=== PATIENT | male | born 1965 | race African-American/Black ===

== ENCOUNTER 2016-10-15 04:42 | Emergency (ER) | payer SELFPAY ==
[~2016-10-15] VITALS: Ht 170.2 cm
[2016-10-15 05:14] VITALS: BP 191/119
[2016-10-15 05:14] LABS: BILIRUBIN,URINE NEGATIVE (NEG); GLUCOSE,URINE NEGATIVE (NEG); NITRITE,URINE NEGATIVE (NEG); PROTEIN,URINE 30 mg/dL (NEG-TRACE); UROBILINOGEN,URINE 0.2 mg/dL (0.2 mg/dL)
--- NOTE | 2016-10-15 05:15 | PHYS DOC ---
Past Medical History Past Medical History: Hypertension Past Surgical History: No Surgical History Additional Past Surgical Histo: Fx L)jaw with repair(hit with batted baseball.) Alcohol Use: None Drug Use: Marijuana Adult General Chief Complaint Chief Complaint: PENIS PROBLEM HPI HPI Patient is a 51 year old male who presents with penile discharge. Patient reports 2 day history of white discharge associated with mild burning pain while urinating. He denies fevers/chills, nausea, vomiting, abdominal pain, testicular pain. Reports he is sexually active with one partner. Previously treated for a sexual infection many years ago. Review of Systems Review of Systems Constitutional: Denies fever or chills HENT: Denies nasal congestion or sore throat Respiratory: Denies cough Cardiovascular: Denies chest pain GI: Denies abdominal pain, nausea, vomiting : Denies dysuria or hematuria, reports penile discharge Musculoskeletal: Denies back pain or joint pain Integument: Denies rash or skin lesions Neurologic: Denies headache Current Medications Current Medications Current Medications Medications (Trade) Dose Ordered Sig/Gita Start Time Stop Time Status Last Admin Dose Admin Azithromycin (Zithromax) 1,000 mg 1X ONCE 10/15/16 05:30 10/15/16 05:31 DC 10/15/16 05:25 1,000 MG Ceftriaxone Sodium (Rocephin Im) 250 mg 1X ONCE 10/15/16 05:30 10/15/16 05:31 DC 10/15/16 05:25 250 MG Allergies Allergies Allergies Coded Allergies Type Severity Reaction Last Updated Verified No Known Drug Allergies 05/07/15 No Physical Exam Physical Exam Constitutional: Well developed, well nourished, no acute distress, non-toxic appearance. HENT: Normocephalic, atraumatic, bilateral external ears normal, oropharynx moist, nose normal. Eyes: PERRLA, EOMI, conjunctiva normal, no discharge. Neck: supple, no stridor. Cardiovascular: RRR, no murmurs, no edema. Lungs & Thorax: LCTAB, no wheezing, no respiratory distress. Abdomen: soft, nontender, nondistended. : normal appearing male external genitalia with circumcised penis, no evidence of discharge, no rashes or lesions, no penile tenderness, no testicular tenderness or masses. Skin: Warm, dry, no erythema, no rash. Back: No tenderness. Extremities: No tenderness, no edema. Neurologic: Alert and oriented X 3, no focal deficits noted. Psychologic: Affect normal, judgement normal, mood normal. Current Patient Data Vital Signs Vital Signs Date Time Temp Pulse Resp B/P Pulse Ox O2 Delivery O2 Flow Rate FiO2 10/15/16 05:14 98.1 70 16 93 Room Air 98.1 Lab Values Laboratory Tests Test 10/15/16 05:01 Urine Collection Type Unknown Urine Color Yellow Urine Clarity Clear Urine pH 6.0 Urine Specific [place] >=1.030 Urine Protein 30mg/dL (NEG-TRACE) Urine Glucose (UA) Negativemg/dL (NEG) Urine Ketones (Stick) Negativemg/dL (NEG) Urine Blood Negative (NEG) Urine Nitrite Negative (NEG) Urine Bilirubin Negative (NEG) Urine Urobilinogen Dipstick 0.2mg/dL (0.2 mg/dL) Urine Leukocyte Esterase Small (NEG) Urine RBC 0/HPF (0-2) Urine WBC 20-40/HPF (0-4) Urine Squamous Epithelial Cells Occ/LPF Urine Bacteria 0/HPF (0-FEW) Urine Hyaline Casts Occasional/HPF Urine Mucus Marked/LPF Urine Chlamydia DNA (PCR) Negative (Negative) Neisseria gonorrhoeae DNA (PCR) Negative (Negative) Microbiology 10/15/16 Urine Culture - Final, Complete 10/15/16 Urine Culture Result 1 (LAZARO) - Final, Complete EKG EKG [] Radiology/Procedures Radiology/Procedures [] Course & Med Decision Making Course & Med Decision Making Pertinent Labs and Imaging studies reviewed. (See chart for details) Patient presents with possible sexually transmitted infection. he would like to be empirically treated. Gave rocephin & azithromycin here. Counseled regarding safe sex & need for sexual partner(s) to be tested/treated. Follow up as needed with Dr. Abad in urology clinic. Come back for high fever, severe abdominal pain, uncontrolled vomiting, any otherwise worsening condition. Discharged home in stable condition. [] Dragon Disclaimer Dragon Disclaimer This electronic medical record was generated, in whole or in part, using a voice recognition dictation system. Departure Departure Impression: Primary Impression: Penile discharge Disposition: HOME, SELF-CARE Condition: STABLE Referrals: NO PCP (PCP) JIMENA ABAD DO Patient Instructions: Safe Sex, Sexually Transmitted Disease, [id number] Additional Instructions: You were seen in the emergency department today for possible sexually transmitted infection. You were treated today for gonorrhea & chlamydia. Any sexual partner should also be encouraged to receive testing & treatment. Please use condoms when having intercourse. Follow up as needed with Dr. Abad in the urology clinic if symptoms don't resolve. Come back for high fever, severe abdominal pain, inability to urinate, otherwise worsening condition. TAMI FAY MD Oct 15, 2016 05:15
[2016-10-15 05:19] LABS: BACTERIA,URINE 0 /HPF (0-FEW); RBC,URINE 0 /HPF (0-2); SQUAMOUS EPITHELIAL CELL,UR OCC /LPF; WBC,URINE 20-40 /HPF (0-4)
[2016-10-15] MEDS ORDERED: CEFTRIAXONE IM 250 MG VIAL. IM ONE (05:30)
[2016-10-15] MEDS ORDERED: AZITHROMYCIN 250 MG TABLET. PO ONE (05:30)
== END 2016-10-15 05:30 | disposition home or self-care (01) ==
LOC: ER 04:42
DX: R36.9 Urethral discharge, unspecified (principal); I10 Essential (primary) hypertension; F12.10 Cannabis abuse, uncomplicated
CPT/HCPCS: 81001; 87086; 87491; 87591; 96372; 99284; J0696; Q0144